=== PATIENT | male | born 1950 | race Caucasian/White ===

== ENCOUNTER 2020-02-08 08:46 | Outpatient (CLI) | payer MEDICARE ==
--- NOTE | 2020-02-08 09:32 | MRI ---
MR the lumbar spine without contrast: 02/08/2020 History: Right hip pain, right lower extremity radiculopathy COMPARISON: None. TECHNIQUE: Multiplanar multisequence MR images were obtained of lumbar spine without IV contrast FINDINGS: On the basis of 5 lumbar type vertebral bodies, conus medullaris terminates at theL1-2 level. Sagittal STIR imaging demonstrates no focal area of osseous marrow edema. T12-L1:There is disc space narrowing and disc desiccation with anterior osteophyte formation and mild disc bulge. Mild bilateral facet hypertrophy. Mild central canal stenosis. No significant neural foraminal stenosis. L1-2:There is disc space narrowing with disc desiccation and disc bulge. Small superimposed right par acentral disc protrusion. Mild central canal stenosis/right lateral recess stenosis. Mild/moderate right neural foraminal stenosis. No significant left neural foraminal stenosis. Mild bilateral facet hypertrophy. L2-3:Mild bilateral facet hypertrophy. Disc space narrowing and disc desiccation. No significant cent ral canal or neural foraminal stenosis. L3-4:Bilateral facet hypertrophy and hypertrophy of the ligamentum flavum, left greater than right. There is disc space narrowing with disc desiccation and mild disc bulge. There is moderate central ca nal stenosis/left lateral recess stenosis with moderate/severe left neural foraminal stenosis and mild right neural foraminal stenosis. L4-5:Disc desiccation with disc space narrowing and mild disc bulge. Mild bilateral facet hypertrophy . No significant central canal stenosis. Moderate/severe bilateral neural foraminal stenosis, left greater than right. L5-S1:There is disc space narrowing with disc desiccation and disc bulge. Mild small central disc pro trusion. No significant central canal stenosis. Prominent bilateral facet hypertrophy with severe bilateral neural foraminal stenosis. Image retroperitoneal structures demonstrateno acute findings. IMPRESSION: Multilevel lumbar spine degenerative change with significant areas of central canal and neural forami nal stenosis as detailed above.
== END 2020-02-08 08:47 | disposition home or self-care (01) ==
LOC: TBSIIMAG 08:46
DX: M47.26 Other spondylosis with radiculopathy, lumbar region (principal); M48.061 Spinal stenosis, lumbar region without neurogenic claudication
CPT/HCPCS: 72148

== ENCOUNTER 2021-05-02 15:07 | Inpatient (IN) | payer MEDICARE ==
[2021-05-03 16:16] VITALS: BMI 30.3
[2021-05-03] MEDS ORDERED: Nitroglycerin 0.4 MG TAB (25 Tab Bottle) SL PRN (16:16)
[2021-05-03] MEDS ORDERED: Senokot S 8.6-50 MG TAB PO PRN (16:23)
[2021-05-03] MEDS ORDERED: Calcium Carbonate 500 MG ChewTAB PO PRN (16:23)
[2021-05-03] MEDS ORDERED: Acetaminophen 325 MG TAB PO PRN (16:23)
[2021-05-03] MEDS ORDERED: Ondansetron ODT 4 MG TAB PO PRN (16:23)
[2021-05-03] MEDS ORDERED: Ondansetron PF 4 MG/2 ML Vial IVP PRN (16:23)
[2021-05-03] MEDS ORDERED: cloNIDine 0.1 MG TAB PO PRN (16:57)
[2021-05-03] MEDS ORDERED: Lisinopril 5 MG TAB PO SCH (17:00)
[2021-05-03] MEDS: Famotidine 20 MG TAB PO SCH (20:25)
[2021-05-03] MEDS: Atorvastatin Calcium 40 MG TAB PO SCH (20:25)
[2021-05-03] MEDS ORDERED: Enoxaparin Sodium 40 MG/0.4 ML SYRINGE SC SCH (21:00)
[2021-05-04] MEDS ORDERED: Communication Order-Pharmacy FS SCH (07:35)
[2021-05-04] MEDS ORDERED: Diazepam 5 MG TAB PO PRN (07:35)
[2021-05-04] MEDS: Famotidine 20 MG TAB PO SCH ×2 (08:35→20:18)
[2021-05-04] MEDS: Lisinopril 2.5 MG TAB PO SCH (08:35)
[2021-05-04] MEDS: Aspirin 325 mg Enteric Coated Tablet PO SCH (08:36)
[2021-05-04] MEDS ORDERED: Lisinopril 5 MG TAB PO SCH (09:00)
[2021-05-04] MEDS ORDERED: Polyethylene Glycol 3350 17 GM Packet PO PRN (10:10)
[2021-05-04] MEDS: Atorvastatin Calcium 40 MG TAB PO SCH (20:18)
[2021-05-05 08:24] LABS: Albumin 4.1 g/dL (3.4-4.8); Anion Gap 12 mmol/L (10-20); BUN (Urea Nitrogen) 21 mg/dL (8.4-25.7); Bilirubin, Total 1.2 mg/dL (0.2-1.2); Calc. Creatinine Clearance 88 mL/min (70-130); Calcium 9.2 mg/dL (7.8-10.44); Carbon Dioxide 25 mmol/L (23-31); Chloride 102 mmol/L (98-107); Globulin 2.6 g/dL (2.4-3.5); Glucose 123 mg/dL (83-110); Potassium 4.1 mmol/L (3.5-5.1); Protein, Total 6.7 g/dL (5.8-8.1); Sodium 135 mmol/L (136-145)
[2021-05-05 08:25] LABS: ALT (SGPT) 18 U/L (8-55); AST (SGOT) 14 U/L (5-34); Alkaline Phosphatase 73 U/L (40-110)
[2021-05-05] MEDS: Lisinopril 2.5 MG TAB PO SCH (09:06)
[2021-05-05] MEDS: Famotidine 20 MG TAB PO SCH ×2 (09:06→20:39)
[2021-05-05] MEDS: Aspirin 325 mg Enteric Coated Tablet PO SCH (09:06)
[2021-05-05] MEDS ORDERED: Polyethylene Glycol 3350 17 GM Packet PO SCH (17:45)
[2021-05-05] MEDS: Atorvastatin Calcium 40 MG TAB PO SCH (20:39)
[2021-05-06 05:00] LABS: #Eosinphils 0.1 thou/uL (0.0-0.7); #Lymphocytes 1.5 thou/uL (1.20-3.40); #Monocytes 0.7 thou/uL (0.11-0.59); #Neutrophils 3.6 thou/uL (1.40-6.50); %Basophils 0.7 % (0.0-1.0); %Eosinophils 2.5 % (0.0-10.0); %Lymphocytes 24.9 % (21.0-51.0); %Monocytes 11.6 % (0.0-10.0); %Neutrophils 60.3 % (42.0-75.0); Hemoglobin 15.7 g/dL (14.0-18.0); Mean Corpuscular HGB CONC 33.7 g/dL (32.0-36.0); Mean Corpuscular Hemoglobin 31.9 pg (27.0-31.0); Mean Corpuscular Volume 94.8 fL (78.0-98.0); Mean Platelet Volume 7.3 fL (7.4-10.4); Platelet Count 220 thou/uL (130-400); RBC Distribution Width 12.3 % (11.5-14.5); Red Blood Cell (RBC) Count 4.91 mill/uL (4.70-6.10)
[2021-05-06 05:11] LABS: PTT 32.1 sec (22.9-36.1); Prothrombin Time 13.2 sec (12.0-14.7)
[2021-05-06 05:18] LABS: Anion Gap 12 mmol/L (10-20); BUN (Urea Nitrogen) 19 mg/dL (8.4-25.7); Calc. Creatinine Clearance 99 mL/min (70-130); Carbon Dioxide 24 mmol/L (23-31); Chloride 103 mmol/L (98-107); Potassium 4.3 mmol/L (3.5-5.1); Sodium 135 mmol/L (136-145)
[2021-05-06 05:19] LABS: ALT (SGPT) 18 U/L (8-55); AST (SGOT) 15 U/L (5-34); Albumin 4.2 g/dL (3.4-4.8); Alkaline Phosphatase 72 U/L (40-110); Bilirubin, Total 0.8 mg/dL (0.2-1.2); Calcium 9.3 mg/dL (7.8-10.44); Globulin 2.8 g/dL (2.4-3.5); Glucose 100 mg/dL (83-110)
[2021-05-06] MEDS ORDERED: EPINEPHrine 1 MG/ML AMP ONE (06:59)
[2021-05-06] MEDS ORDERED: Bupivacaine PF 0.5% 30 ML VIAL ONE (06:59)
[2021-05-06] MEDS ORDERED: Albumin 5% 500 ML ONE (06:59)
[2021-05-06] MEDS ORDERED: Dexamethasone 4 mg/ml Vial ONE (06:59)
[2021-05-06] MEDS ORDERED: Midazolam HCl 5 mg/5 ml Vial ONE (07:36)
[2021-05-06] MEDS ORDERED: Dexmedetomidine 200 MCG/2 ML VIAL ONE (07:36)
[2021-05-06] MEDS ORDERED: Fentanyl 100 MCG/2 ML VIAL ONE (07:36)
[2021-05-06] MEDS ORDERED: ceFAZolin 2 GM/Dextrose 50 ML 2 GM in Premix Bag 1 BAG IVPB SCH (07:36)
[2021-05-06] MEDS ORDERED: Heparin 10,000 UNITS/1 ML VIAL 30,000 UNITS in Sodium Chloride 0.9% 1,000 ML FS SCH (07:45)
[2021-05-06] MEDS ORDERED: Ondansetron ODT 4 MG TAB ONE (08:19)
[2021-05-06] MEDS ORDERED: Midazolam HCl 2 mg/2 ml Vial ONE (08:19)
[2021-05-06] MEDS ORDERED: Lidocaine 1% MPF 2 ML VIAL ONE ×2 (08:20→08:43)
[2021-05-06] MEDS ORDERED: Polyethylene Glycol 3350 17 GM Packet PO SCH (09:00)
[2021-05-06] MEDS ORDERED: ceFAZolin 2 GM/Dextrose 50 ML IVPB ONE (09:08)
[2021-05-06] MEDS ORDERED: PROPOFOL 200 MG/20 ML VIAL ONE (09:25)
[2021-05-06] MEDS ORDERED: Lidocaine 1% PF 5 ML VIAL ONE (09:25)
[2021-05-06] MEDS ORDERED: Thrombin 5000 UNITS/5 ML VIAL ONE (09:25)
[2021-05-06] MEDS ORDERED: Sodium Bicarb 50 MEQ/50 ML Abboject 8.4% SYRINGE ONE (09:25)
[2021-05-06] MEDS ORDERED: Dexamethasone 20 MG/5 ML VIAL ONE (09:25)
[2021-05-06] MEDS ORDERED: Heparin 30,000 units/30 ml VIAL ONE (09:25)
[2021-05-06] MEDS ORDERED: Norepinephrine 4 MG/4 ML VIAL ONE (09:25)
[2021-05-06] MEDS ORDERED: Protamine Sulfate 250 MG/25 ML VIAL ONE (09:25)
[2021-05-06] MEDS ORDERED: Calcium Chloride 1 GM/10 ML Abboject SYRINGE ONE (09:25)
[2021-05-06] MEDS ORDERED: Potassium Chloride 60 MEQ/30 ML VIAL ONE (09:25)
[2021-05-06] MEDS ORDERED: Glycopyrrolate 0.2 MG/ML 5 ML SYRINGE ONE (09:25)
[2021-05-06] MEDS ORDERED: Papaverine 60 MG/2 ML VIAL ONE (09:25)
[2021-05-06] MEDS ORDERED: Cardioplegic Soln 1,000 ML BAG ONE (09:25)
[2021-05-06] MEDS ORDERED: Vecuronium 10 MG VIAL ONE (09:25)
[2021-05-06] MEDS ORDERED: Mannitol 12.5 GM/50 ML ONE (09:25)
[2021-05-06] MEDS ORDERED: Ondansetron PF 4 MG/2 ML Vial ONE (09:25)
[2021-05-06] MEDS ORDERED: Lidocaine 2% PF 100 mg/5 ml Syringe ONE (09:25)
[2021-05-06] MEDS ORDERED: Magnesium Sulfate 1 GM/2 ML VIAL ONE (09:25)
[2021-05-06] MEDS ORDERED: Heparin 5,000 UNITS/ML VIAL ONE (09:25)
[2021-05-06] MEDS ORDERED: Aminocaproic Acid 5 GM/20 ML VIAL ONE (09:25)
[2021-05-06] MEDS ORDERED: Insulin Regular 300 UNITS/3 ML VIAL ONE (11:00)
[2021-05-06] MEDS ORDERED: Acetaminophen 325 MG TAB PO PRN (12:31)
[2021-05-06] MEDS ORDERED: Nitroglycerin 50 MG/250 ML BOT 250 ML IVPB PRN (12:31)
[2021-05-06] MEDS ORDERED: Mag-Al 1200 mg/1200 mg/30 ML UDCUP PO PRN (12:31)
[2021-05-06] MEDS ORDERED: Bisacodyl 5 MG TAB PO PRN (12:31)
[2021-05-06] MEDS ORDERED: niCARdipine 25 MG in Sodium Chloride 0.9% 250 ML 250 ML IVPB PRN (12:31)
[2021-05-06] MEDS ORDERED: Fentanyl 100 MCG/2 ML VIAL SLOW IVP PRN (12:31)
[2021-05-06] MEDS ORDERED: Promethazine HCl 25 MG/ML VIAL IM PRN (12:31)
[2021-05-06] MEDS ORDERED: Guaifenesin DM 100-10/5 ML UDCUP PO PRN (12:31)
[2021-05-06] MEDS ORDERED: traMADol HCl 50 MG TAB PO PRN ×2 (12:31)
[2021-05-06] MEDS ORDERED: Phenylephrine 40 MG/NS 250 ML 250 ML IVPB PRN (12:31)
[2021-05-06] MEDS ORDERED: Magnesium 2 GM/50 ML(in water) 2 GM in Premix Bag 1 BAG IVPB SCH (12:31)
[2021-05-06] MEDS ORDERED: D5 1/2 NS w/20 mEq KCL 1,000 ML IV SCH (12:31)
[2021-05-06] MEDS ORDERED: Hetastarch 6% 500 ML 500 ML IVPB PRN (12:31)
[2021-05-06] MEDS ORDERED: Bisacodyl 10 MG SUPP PR PRN (12:31)
[2021-05-06] MEDS ORDERED: Ondansetron PF 4 MG/2 ML Vial IVP PRN (12:31)
[2021-05-06] MEDS ORDERED: Morphine 2 MG/ML VIAL SLOW IVP PRN (12:31)
[2021-05-06] MEDS ORDERED: Lantus 1000 UNITS/10 ML VIAL SC PRN (12:45)
[2021-05-06] MEDS ORDERED: HUMULIN R 100 UNITS in Sodium Chloride 0.9% 100 ML IVPB SCH (12:45)
[2021-05-06] MEDS ORDERED: Dextrose 50% Abboject 50 ML SYRINGE SLOW IVP PRN (12:45)
[2021-05-06] MEDS ORDERED: Dextrose 5% in Water 1,000 ML IV PRN (12:45)
[2021-05-06] MEDS ORDERED: Insulin Regular 300 UNITS/3 ML VIAL SC PRN (12:45)
[2021-05-06] MEDS ORDERED: Morphine 4 MG/ML VIAL SLOW IVP PRN (13:00)
[2021-05-06 13:03] LABS: #Eosinphils 0.1 thou/uL (0.0-0.7); #Lymphocytes 1.2 thou/uL (1.20-3.40); #Monocytes 0.5 thou/uL (0.11-0.59); #Neutrophils 10.5 thou/uL (1.40-6.50); %Basophils 0.2 % (0.0-1.0); %Eosinophils 0.5 % (0.0-10.0); %Lymphocytes 9.6 % (21.0-51.0); %Monocytes 4.4 % (0.0-10.0); %Neutrophils 85.4 % (42.0-75.0); Hemoglobin 13.1 g/dL (14.0-18.0); Mean Corpuscular HGB CONC 32.4 g/dL (32.0-36.0); Mean Corpuscular Volume 95.9 fL (78.0-98.0); Mean Platelet Volume 7.2 fL (7.4-10.4); Platelet Count 148 thou/uL (130-400); RBC Distribution Width 12.1 % (11.5-14.5); Red Blood Cell (RBC) Count 4.22 mill/uL (4.70-6.10); White Blood Cell (WBC) Count 12.3 thou/uL (4.8-10.8)
[2021-05-06 13:20] LABS: INR-International Normal Ratio 1.3; PTT 31.5 sec (22.9-36.1)
[2021-05-06 13:29] LABS: Anion Gap 10 mmol/L (10-20); BUN (Urea Nitrogen) 17 mg/dL (8.4-25.7); Calc. Creatinine Clearance 107 mL/min (70-130); Calcium 7.4 mg/dL (7.8-10.44); Carbon Dioxide 23 mmol/L (23-31); Chloride 108 mmol/L (98-107); Glucose 141 mg/dL (83-110); Potassium 3.9 mmol/L (3.5-5.1); Sodium 137 mmol/L (136-145)
[2021-05-06] MEDS: Potassium Chloride 20 MEQ/100 ML PREMIX BAG IVPB PRN ×2 (13:44→18:40)
[2021-05-06] MEDS: Lisinopril 2.5 MG TAB PO SCH (14:48)
[2021-05-06] MEDS: Famotidine 20 MG TAB PO SCH (14:48)
[2021-05-06] MEDS: Aspirin 325 mg Enteric Coated Tablet PO SCH (14:49)
[2021-05-06] MEDS ORDERED: FLU VACC QS2021-22(65YR UP)/PF 240 MCG/0.7 ML SYRINGE IM ONE (16:15)
[2021-05-06] MEDS: Fentanyl 100 MCG/2 ML VIAL SLOW IVP PRN ×3 (16:37→22:32)
[2021-05-06] MEDS: ceFAZolin 2 GM/Dextrose 50 ML 2 GM in Premix Bag 1 BAG IVPB SCH (16:38)
[2021-05-06 18:09] LABS: Hemoglobin 14.2 g/dL (14.0-18.0)
[2021-05-06] MEDS: Ketorolac Tromethamine 30 MG/ML VIAL IVP SCH (18:09)
[2021-05-06] MEDS ORDERED: Famotidine/PF 20 mg/2ml Vial SLOW IVP SCH (21:00)
[2021-05-06] MEDS: Atorvastatin Calcium 40 MG TAB PO SCH (21:48)
[2021-05-07] MEDS: Ketorolac Tromethamine 30 MG/ML VIAL IVP SCH ×5 (00:59→23:45)
[2021-05-07] MEDS: ceFAZolin 2 GM/Dextrose 50 ML 2 GM in Premix Bag 1 BAG IVPB SCH ×2 (01:14→08:19)
[2021-05-07 04:05] LABS: #Lymphocytes 0.4 thou/uL (1.20-3.40); #Neutrophils 10.4 thou/uL (1.40-6.50); %Basophils 0.1 % (0.0-1.0); %Eosinophils 0.1 % (0.0-10.0); %Lymphocytes 3.5 % (21.0-51.0); %Monocytes 8.4 % (0.0-10.0); %Neutrophils 87.9 % (42.0-75.0); Mean Corpuscular HGB CONC 33.3 g/dL (32.0-36.0); Mean Corpuscular Volume 96.3 fL (78.0-98.0); Platelet Count 173 thou/uL (130-400); RBC Distribution Width 12.2 % (11.5-14.5); Red Blood Cell (RBC) Count 4.36 mill/uL (4.70-6.10); White Blood Cell (WBC) Count 11.8 thou/uL (4.8-10.8)
[2021-05-07 04:25] LABS: Anion Gap 10 mmol/L (10-20); BUN (Urea Nitrogen) 21 mg/dL (8.4-25.7); Calc. Creatinine Clearance 118 mL/min (70-130); Calcium 8.2 mg/dL (7.8-10.44); Carbon Dioxide 22 mmol/L (23-31); Chloride 106 mmol/L (98-107); Glucose 129 mg/dL (83-110); Potassium 4.4 mmol/L (3.5-5.1); Sodium 134 mmol/L (136-145)
[2021-05-07] MEDS ORDERED: Mag-Al 1200 mg/1200 mg/30 ML UDCUP PO PRN (08:13)
[2021-05-07] MEDS ORDERED: Milk Of Magnesia 30 ML UDCUP PO PRN (08:13)
[2021-05-07] MEDS ORDERED: Mineral Oil ENEMA PR PRN (08:13)
[2021-05-07] MEDS ORDERED: Bisacodyl 10 MG SUPP PR PRN (08:13)
[2021-05-07] MEDS ORDERED: Nitroglycerin 0.4 MG TAB (25 Tab Bottle) SL PRN (08:13)
[2021-05-07] MEDS ORDERED: Guaifenesin DM 100-10/5 ML UDCUP PO PRN (08:13)
[2021-05-07] MEDS ORDERED: Bisacodyl 5 MG TAB PO PRN (08:13)
[2021-05-07] MEDS ORDERED: diphenhydrAMINE 25 MG CAP PO PRN (08:13)
[2021-05-07] MEDS ORDERED: Zolpidem Tartrate 5 MG TAB PO PRN (08:13)
[2021-05-07] MEDS: Magnesium 2 GM/50 ML(in water) 2 GM in Premix Bag 1 BAG IVPB SCH (08:19)
[2021-05-07] MEDS: Aspirin 325 MG TAB PO SCH (08:20)
[2021-05-07] MEDS: Atorvastatin Calcium 40 MG TAB PO SCH (19:54)
[2021-05-08] MEDS: Ketorolac Tromethamine 30 MG/ML VIAL IVP SCH ×3 (05:49→18:42)
[2021-05-08] MEDS ORDERED: Metoprolol Tartrate 25 MG TAB PO SCH (09:00)
[2021-05-08] MEDS: Magnesium 2 GM/50 ML(in water) 2 GM in Premix Bag 1 BAG IVPB SCH (09:20)
[2021-05-08] MEDS: Aspirin 325 MG TAB PO SCH (09:22)
[2021-05-08 18:56] VITALS: BP 132/74; TEMP 98.4
[2021-05-13 14:47] LABS: Actual Bicarbonate (HCO3a) 23.8 mEq/L (22-28); Analyzer IN Cardio OR; Base Excess (BEa) -0.5 mEq/L (-2.0 to +3.0); CO2 Tension 38.4 mmHg (35.0-45.0); Calcium, Ionized (arterial) 1.12 mmol/L (1.12-1.30); Carboxyhemoglobin (COHb) 0.8 gm% (0.0-3.0); Hemoglobin (Hb) 14.4 g/dL (14.0-18.0); O2 Tension (PaO2), arterial 390.4 mmHg (> 70.0); Potassium - ABG Lab 4.41 mmol/L (3.70-5.30); pH, Arterial 7.41 (7.35-7.45)
[2021-05-13 14:48] LABS: Actual Bicarbonate (HCO3a) 22.1 mEq/L (22-28); Analyzer IN Cardio OR; Base Excess (BEa) -2.7 mEq/L (-2.0 to +3.0); CO2 Tension 38.5 mmHg (35.0-45.0); Carboxyhemoglobin (COHb) 0.5 gm% (0.0-3.0); Hemoglobin (Hb) 13.6 g/dL (14.0-18.0); O2 Tension (PaO2), arterial 343.9 mmHg (> 70.0); Potassium - ABG Lab 4.11 mmol/L (3.70-5.30); pH, Arterial 7.38 (7.35-7.45)
[2021-05-13 14:48] LABS: Actual Bicarbonate (HCO3a) 23.1 mEq/L (22-28); Analyzer IN Cardio OR; Base Excess (BEa) -0.2 mEq/L (-2.0 to +3.0); CO2 Tension 34.1 mmHg (35.0-45.0); Calcium, Ionized (arterial) 0.98 mmol/L (1.12-1.30); O2 Tension (PaO2), arterial 401.7 mmHg (> 70.0); pH, Arterial 7.45 (7.35-7.45)
[2021-05-13 14:48] LABS: Actual Bicarbonate (HCO3v) 22 mEq/L (22-28); Analyzer IN Cardio OR; Base Excess -2.3 mEq/L (-2.0 to +3.0); Calcium, Ionized (venous) 1.03 mmol/L (1.16-1.32); Chloride (VBG) 101 mmol/L (98-106); Hemoglobin (Hb) 10.8 g/dL (12.6-17.4); Sodium 130.6 mmol/L (133-146)
[2021-05-13 14:49] LABS: Analyzer IN Cardio OR; Base Excess (BEa) -1.3 mEq/L (-2.0 to +3.0); CO2 Tension 32.1 mmHg (35.0-45.0); Calcium, Ionized (arterial) 0.99 mmol/L (1.12-1.30); Carboxyhemoglobin (COHb) 0.3 gm% (0.0-3.0); Hemoglobin (Hb) 10.8 g/dL (14.0-18.0); O2 Tension (PaO2), arterial 361.1 mmHg (> 70.0); Potassium - ABG Lab 4.95 mmol/L (3.70-5.30); pH, Arterial 7.45 (7.35-7.45)
[2021-05-13 14:49] LABS: Actual Bicarbonate (HCO3a) 20.1 mEq/L (22-28); Analyzer IN Cardio OR; CO2 Tension 33.2 mmHg (35.0-45.0); Calcium, Ionized (arterial) 1.22 mmol/L (1.12-1.30); Carboxyhemoglobin (COHb) 0.3 gm% (0.0-3.0); Hemoglobin (Hb) 10.4 g/dL (14.0-18.0); O2 Tension (PaO2), arterial 482.2 mmHg (> 70.0); Potassium - ABG Lab 5.08 mmol/L (3.70-5.30)
[2021-05-13 14:50] LABS: Actual Bicarbonate (HCO3a) 23.6 mEq/L (22-28); Analyzer IN Cardio OR; Base Excess (BEa) -4.4 mEq/L (-2.0 to +3.0); CO2 Tension 56.3 mmHg (35.0-45.0); Carboxyhemoglobin (COHb) 0.3 gm% (0.0-3.0); Hemoglobin (Hb) 13.1 g/dL (14.0-18.0); O2 Tension (PaO2), arterial 175.7 mmHg (> 70.0); Potassium - ABG Lab 3.92 mmol/L (3.70-5.30)
[2021-05-13 14:50] LABS: Puncture Site Arterial Line
[2021-05-13 14:50] LABS: Puncture Site Arterial Line
[2021-05-13 14:51] LABS: Puncture Site Arterial Line
[2021-05-13 14:52] LABS: Puncture Site Arterial Line
[2021-05-13 14:52] LABS: Puncture Site Arterial Line
[2021-05-13 14:53] LABS: pH, Arterial 7.24 (7.35-7.45)
[2021-05-13 14:54] LABS: Puncture Site Arterial Line
== END 2021-05-08 19:05 | disposition home or self-care (01) | DRG 236 ==
LOC: 2NO 15:07 → UNDOADMIN 05-03 16:02 → 2NO 05-06 08:56 → CCU 05-06 08:56 → 2NO 05-07 15:20 → UNDODISIN 05-08 19:05
PROVIDERS: ADMIT Internal Medicine; ATTEND Emergency Medicine
PROC: 021209W Bypass Coronary Artery, Three Arteries from Aorta with Autologous Venous Tissue, Open Approach (ICD-10-PCS; principal; 2021-05-06)
PROC: 02100Z9 Bypass Coronary Artery, One Artery from Left Internal Mammary, Open Approach (ICD-10-PCS; 2021-05-06)
PROC: 06BQ4ZZ Excision of Left Saphenous Vein, Percutaneous Endoscopic Approach (ICD-10-PCS; 2021-05-06)
PROC: 5A1221Z Performance of Cardiac Output, Continuous (ICD-10-PCS; 2021-05-06)
PROC: 02L70CK Occlusion of Left Atrial Appendage with Extraluminal Device, Open Approach (ICD-10-PCS; 2021-05-06)
DX: I25.10 Atherosclerotic heart disease of native coronary artery without angina pectoris (principal); Z20.822 Contact with and (suspected) exposure to COVID-19; E78.5 Hyperlipidemia, unspecified; F17.210 Nicotine dependence, cigarettes, uncomplicated; Z66 Do not resuscitate; N18.2 Chronic kidney disease, stage 2 (mild); I12.9 Hypertensive chronic kidney disease with stage 1 through stage 4 chronic kidney disease, or unspecified chronic kidney disease; K59.00 Constipation, unspecified; I49.3 Ventricular premature depolarization; Z78.1 Physical restraint status; Z79.899 Other long term (current) drug therapy
CPT/HCPCS: 36415; 36416; 36430; 70551; 71045; 72141; 80048; 80053; 80061; 82805; 83036; 83735; 84443; 85025; 85610; 85652; 85730; 86140; 86850; 86900; 86901; 93005; 93010; 93306; 93459; 93798; 93880; 94150; 94760; 99152; 99153; C1751; C1776; J0153; J0171; J0690; J1100; J1642; J1644; J1650; J1815; J1885; J2001; J2150; J2250; J2405; J2440; J2704; J2720; J3010; J3370; J3475; J3480; J3490; P9045; Q0162; S0017; S0020; S0028